=== PATIENT | male | born 1950 | race Caucasian/White ===

== ENCOUNTER 2018-01-15 10:15 | Emergency (ER) | payer MEDICARE, BC ==
[~2018-01-15] VITALS: Ht 177.8 cm; Wt 95.0 kg
[2018-01-15 10:39] VITALS: BP 132/64
[2018-01-15] MEDS ORDERED: EC-NAPROSYN500 MG PO (10:53)
[2018-01-15] MEDS ORDERED: HYDROCHLOROT25 MG PO (11:02)
[2018-01-15] MEDS ORDERED: ASPIRINCHW 81MG PO (11:02)
[2018-01-15] MEDS ORDERED: AMLODIPINE10 MG PO (11:02)
[2018-01-15] MEDS ORDERED: LOPRESSOR25 M1 PO (11:03)
[2018-01-15] MEDS ORDERED: LISINOPRIL10 MG PO (11:03)
[2018-01-15] MEDS ORDERED: PRAVASTATIN SOD40 MG PO (11:04)
== END 2018-01-15 11:10 | disposition home or self-care (01) ==
LOC: ED 10:15
DX: M70.22 Olecranon bursitis, left elbow (principal)

== ENCOUNTER 2021-01-14 11:21 | Emergency (ER) | payer MEDICARE, BC ==
[~2021-01-14] VITALS: Ht 177.8 cm; Wt 100.0 kg
[~2021-01-14 11:21] MED LIST: AMLODIPINE10 MG PO; ASPIRINCHW 81MG PO; EC-NAPROSYN500 MG PO; HYDROCHLOROT25 MG PO; LISINOPRIL10 MG PO; LOPRESSOR25 M1 PO; PRAVASTATIN SOD40 MG PO
[2021-01-14 11:58] LABS: GFR 60 ML/MIN (>=60 (CALC)); GFR FOR AFR.AMER. > 60 ML/MIN (>=60 (CALC))
[2021-01-14 11:59] LABS: HEMATOCRIT 32.3 % (39.0-50.0); HEMOGLOBIN 10.8 g/dl (14.0-18.0); IMMATURE GRANULOCYTES 0.2 % (0.0-5.0); MEAN CELL VOLUME 100.6 fL CALC (80.0-100.0); MEAN CORPUSCULAR HGB 33.6 pG CALC (26.0-32.0); MEAN CORPUSCULAR HGB CONC 33.4 g/dL CAL (32.0-36.0); NEUT# 2.6 thou/uL (1.82-7.42); RED BLOOD COUNT 3.21 mill/uL (4.70-6.10); RED CELL DISTRI WIDTH 13.2 % (11.5-15.5)
[2021-01-14 12:25] LABS: ACT PARTIAL THROMBO TIME 23.9 SECONDS (20.0-32.5); INTERNATIONAL NORMALIZED RATIO 1.1 RATIO (0.7-1.3); PROTHROMBIN TIME 10.9 SECONDS (9.0-12.5)
[2021-01-14 12:38] LABS: ALBUMIN 4.3 g/dL (3.2-5.0); ALKALINE PHOSPHATASE 21 u/l (38-126); ANION GAP 13 (6-22 (CALC)); BILIRUBIN, TOTAL 0.7 mg/dL (0.0-1.4); BUN 19 mg/dL (8-23); BUN/CREATININE RATIO 16 (12-20 (CALC)); CARBON DIOXIDE 22 mmol/l (22-30); CHLORIDE 106 mmol/l (95-108); CREATININE 1.2 mg/dL (0.7-1.3); ETHYL ALCOHOL 0 mg/dl (0-30); GFR 60 ML/MIN (>=60 (CALC)); GFR FOR AFR.AMER. > 60 ML/MIN (>=60 (CALC)); LIPASE 159 u/l (23-300); POTASSIUM 4.3 mmol/l (3.5-5.1); SGOT/AST 40 u/l (19-48); SODIUM 137 mmol/l (137-146); TOTAL PROTEIN 8.3 g/dL (6.3-8.2)
[2021-01-14 13:48] LABS: URINE BILIRUBIN - DIPSTICK NEGATIVE (NEGATIVE); URINE BLOOD DIPSTICK NEGATIVE (NEGATIVE); URINE COLOR YELLOW; URINE GLUCOSE - DIPSTICK NEGATIVE (NEGATIVE); URINE KETONE NEGATIVE (NEGATIVE); URINE LEUK ESTERASE NEGATIVE (NEGATIVE); URINE NITRITE - DIPSTICK NEGATIVE (Negative); URINE PH 6.5 (4.5-8.0); URINE PROTEIN - DIPSTICK NEGATIVE (NEG-TRACE); URINE SPECIFIC GRAVITY <=1.005; URINE UROBILINOGEN - DIPSTICK 0.2 E.U./dL (0.2)
[2021-01-14] MEDS ORDERED: FUROSEMIDE20 MG PO (14:19)
[2021-01-14 14:21] VITALS: BP 196/87
== END 2021-01-14 14:28 | disposition short-term general hospital (02) ==
LOC: ED 11:21
DX: I63.511 Cerebral infarction due to unspecified occlusion or stenosis of right middle cerebral artery (principal); R47.01 Aphasia; R29.702 NIHSS score 2; I10 Essential (primary) hypertension; E78.5 Hyperlipidemia, unspecified; Z95.2 Presence of prosthetic heart valve; Z20.822 Contact with and (suspected) exposure to COVID-19
CPT/HCPCS: J2997; Q9967

== ENCOUNTER 2023-12-15 18:01 | Emergency (ER) | payer MEDICARE, BC ==
[~2023-12-15] VITALS: Ht 177.8 cm; Wt 83.0 kg
[~2023-12-15 18:01] MED LIST changes: +FUROSEMIDE20 MG PO
[2023-12-15] MEDS ORDERED: Diph, Acellular Pertussis, Tet 0.5 ML/VIAL (Tdap) SDV IM ONE (18:25)
[2023-12-15 20:40] VITALS: BP 143/61
== END 2023-12-15 20:40 | disposition home or self-care (01) ==
LOC: ED 18:01
PROC: 0HQ1XZZ Repair Face Skin, External Approach (ICD-10-PCS; principal; 2023-12-15)
DX: S01.112A Laceration without foreign body of left eyelid and periocular area, initial encounter (principal); I10 Essential (primary) hypertension; E78.00 Pure hypercholesterolemia, unspecified; W18.39XA Other fall on same level, initial encounter; Y93.55 Activity, bike riding; Y92.410 Unspecified street and highway as the place of occurrence of the external cause; Z95.2 Presence of prosthetic heart valve; Z86.73 Personal history of transient ischemic attack (TIA), and cerebral infarction without residual deficits

== ENCOUNTER 2023-12-26 14:26 | Emergency (ER) | payer MEDICARE, BC ==
[~2023-12-26] VITALS: Ht 177.8 cm; Wt 81.0 kg
[2023-12-26 14:45] VITALS: BP 145/66
[2023-12-26 14:52] VITALS: BP 145/66
== END 2023-12-26 15:25 | disposition home or self-care (01) ==
LOC: ED 14:26
DX: S01.112D Laceration without foreign body of left eyelid and periocular area, subsequent encounter (principal); I10 Essential (primary) hypertension; X58.XXXD Exposure to other specified factors, subsequent encounter; Z95.2 Presence of prosthetic heart valve; Z95.818 Presence of other cardiac implants and grafts